=== PATIENT | female | born 1995 | race Caucasian/White ===

== ENCOUNTER 2018-08-25 00:49 | Emergency (ER) | payer OTHER ==
[~2018-08-25] VITALS: Ht 170.2 cm; Wt 54.0 kg
--- NOTE | 2018-08-25 01:00 | NUR ---
ASSUMED CARE OF PT AT THIS TIME FROM LOBBY. AMBUALTORY TO ROOM WITH STEADY GAIT. 22 Y/O F PRESENTS STATING "1 WEEK AGO DX FROM OBGYN WITH BACTERIAL VAGINOSIS, TAKING FLAYGL SINCE WEDNESDAY, TODAY STARTED PERIOD, BLEEDING A LOT MORE THAN USUAL, LOTS OF CRAMPING, LOWER STOMACH/PELVIC PAIN AND MY LOW BACK HURTS WHEN I BEND FORWARD OR LEAN BACK." RATES PAIN 4/10. REPORTS INTERMITTENT NAUSEA, REFUSES NEED FOR NAUSEA AND PAIN MEDICATION. DENIES V/D, CP, SOB, PAK, FLANK PAIN, DIZZINESS. +DYSURIA STARTING TODAY "RECENT BURNING AND PAINFUL EVERY TIME I PEE." PT REPORTS UNPROTECTED INTERCOURSE WITH SAME PARTNET X1 YR. NO NEW PARTNERS, "THEY TESTED ME FOR STD'S AND ALL THAT ALREADY WHEN THEY FOUND THE BV." DENIES PREGNACY. A&OX4. CONT PULSE OX, BP MONITORS APPLIED. VSS. CALL LIGHT IN REACH. FALL PRECAUTIONS IN PLACE. DAKOTA JONES AT BEDSIDE FOR EVAL.
--- NOTE | 2018-08-25 01:06 | NUR ---
PT AMBULATORY TO RESTROOM WITH STEADY GAIT FOR UA SAMPLE.
--- NOTE | 2018-08-25 01:22 | NUR ---
CLEAN CATCH UA COLLECTED AND WALKED TO LAB, PELVIC EXAM SUPPLIES SET UP AND PT MOVED TO PELVIC GURNERY FOR PELVIC EXAM PER PA REQUEST.
[2018-08-25 01:24] LABS: BASOPHILS # (AUTO) 0.05 x10^3/uL (0-0.1); BASOPHILS % (AUTO) 1 % (0-1); EOSINOPHILS # (AUTO) 0.15 x10^3/uL (0-0.4); EOSINOPHILS % (AUTO) 2 % (1-7); LYMPHOCYTES # (AUTO) 2.72 x10^3/uL (1-3.4); LYMPHOCYTES % (AUTO) 39 % (22-44); MD NO; MEAN CORPUSCULAR HEMOGLOBIN 28.9 pg (27.0-34.8); MEAN CORPUSCULAR HGB CONC 32.6 g/dL (32.4-35.8); MEAN CORPUSCULAR VOLUME 88.5 fL (80-100); MEAN PLATELET VOLUME 9.1 fL (7.4-10.4); MONOCYTES # (AUTO) 0.65 x10^3/uL (0.2-0.8); MONOCYTES % (AUTO) 9 % (2-9); NEUTROPHILS # (AUTO) 3.41 x10^3/uL (1.8-6.8); NEUTROPHILS % (AUTO) 49 % (42-75); PLATELET COUNT 355 x10^3/uL (130-400); RED BLOOD COUNT 4.85 x10^6/uL (3.82-5.3)
[2018-08-25 01:35] LABS: ANION GAP 8 mmol/L (5-15); CALCIUM 9.2 mg/dL (8.5-10.1); CHLORIDE 110 mmol/L (98-107); CREATININE 0.81 mg/dL (0.55-1.02)
[2018-08-25 01:42] LABS: CULTURE INDICATED? YES; MICROSCOPIC INDICATED
--- NOTE | 2018-08-25 01:44 | NUR ---
DAKOTA JONES AT BEDSIDE FOR PELVIC EXAM
--- NOTE | 2018-08-25 01:48 | NUR ---
PT TO US
--- NOTE | 2018-08-25 02:00 | NUR ---
REPORT AND CARE TO NANCY DISLA AT THIS TIME, PT REMAINS IN US
--- NOTE | 2018-08-25 02:52 | NUR ---
US Called for update on us image arrival. US tech calling vrad for update.
[2018-08-25 03:11] VITALS: BP 128/74
--- NOTE | 2018-08-25 03:30 | NUR ---
Patient/Caregiver given discharge instructions and they have confirmed that they understand the instructions. Patient ambulatory with steady gait.
== END 2018-08-25 03:30 | disposition home or self-care (01) ==
LOC: ED 03:25
DX: R10.32 Left lower quadrant pain (principal)
CPT/HCPCS: 36415; 76830; 80048; 81001; 82040; 84702; 85025; 87086; 99284